=== PATIENT | female | born 1975 | race Caucasian/White ===

== ENCOUNTER 2022-05-08 16:26 | Emergency (ER) | payer BC, SELFPAY ==
--- NOTE | ~2022-05-08 | XR_ITS ---
EXAM: XR finger 3rd RT min 2V DATE: 05/08/2022 17:06 HISTORY: DOG LEASH GOT WRAPPED AROUND FINGER 05/05/22. PAIN. . COMPARISON: None available. FINDINGS: Normal mineralization. No fracture or dislocation. No lytic or blastic lesion. Joint space s are maintained. No erosion or periosteal change. Soft tissues within normal limits. IMPRESSION: No acute osseous finding in the right third finger. Reviewed, dictated and finalized at location K.
[2022-05-08 16:46] VITALS: BP 132/71; PULSE 72; RESP 20; TEMP 36.9; O2SAT 99
[2022-05-08 16:58] VITALS: BP 132/71; PULSE 72; RESP 20; TEMP 36.9; O2SAT 99
--- NOTE | 2022-05-08 17:00 | ED.UPPEXIN ---
HPI - Extremity Injury (Upper) General Chief Complaint: Extremity Injury, Upper Stated Complaint: Finger Injury/RIght Time Seen by Provider: 05/08/22 17:00 Source: patient Mode of arrival: ambulatory Limitations: no limitations History of Present Illness HPI narrative: 46 y/o female presented for c/o right middle finger pain after injury 3 days ago. She was walking her dog who started running while the leash was wrapped around the finger. Endorses swelling and pain since then. Denies numbness, tingling, or weakness to the finger. Related Data Home Medications Medication Instructions Recorded Confirmed escitalopram oxalate 20 mg tablet 20 mg PO DAILY 05/08/22 05/08/22 esomeprazole magnesium 40 mg 40 mg PO DAILY 05/08/22 05/08/22 capsule,delayed release hydrochlorothiazide 25 mg tablet 25 mg PO DAILY 05/08/22 05/08/22 pentoxifylline 400 mg 400 mg PO DAILY 05/08/22 05/08/22 tablet,extended release potassium chloride 20 mEq 20 meq PO DAILY 05/08/22 05/08/22 tablet,extended release(part/cryst) (Klor-Con M) Allergies Allergy/AdvReac Type Severity Reaction Status Date / Time Penicillins Allergy Unknown Verified 05/08/22 16:56 Review of Systems Review of Systems: CONSTITUTIONAL: Denies body aches, fever, chills CARDIOVASCULAR: Denies chest pain, palpitations, or edema. RESPIRATORY: Denies cough or dyspnea. SKIN: Denies rash, itching, or wounds. MUSCULOSKELETAL: Reports right middle finger pain NEUROLOGIC: Denies headache, numbness, tingling, or weakness. All systems reviewed & are unremarkable except as noted in HPI and below PMFSH Comments At time of signature, I have reviewed and agree with nursing past medical, surgical, social and family history unless otherwise noted. Please see nursing chart for further information. There is no relevant family history pertinent to the presenting complaint Exam Narrative: GENERAL: Well-appearing CHEST: LCTAB HEART: Regular rate and rhythm. Normal and equal peripheral pulses. EXTREMITIES: Right 3rd finger with mild swelling and decreased ROM, tender to PIP. No bruising. Hand has normal strength and sensation, No open wounds or obvious deformity; pulse palpable and equal bilaterally, skin warm, dry, pink. Capillary refill less than 3 seconds. SKIN: Warm, dry, no rash. NEURO: Alert and oriented x3. Course Course Emergency Course: Patient is aware of diagnosis, understands and agrees to treatment plan. Anticipatory guidance given. Patient agrees to follow-up as directed and is aware of reasons to seek care at the emergency department. Portions of this record may have been created with voice recognition software Level of Care: Express Care Visit Vital Signs Vital signs: Vital Signs Temperature 98.5 F 05/08/22 16:46 Pulse Rate 72 05/08/22 16:46 Respiratory Rate 20 05/08/22 16:46 Blood Pressure 132/71 05/08/22 16:46 Pulse Oximetry 99 05/08/22 16:46 Oxygen Delivery Room Air 05/08/22 16:46 Temperature 98.5 F 05/08/22 16:58 Pulse Rate 72 05/08/22 16:58 Respiratory Rate 20 05/08/22 16:58 Blood Pressure 132/71 05/08/22 16:58 Pulse Oximetry 99 05/08/22 16:58 Oxygen Delivery Room Air 05/08/22 16:58 Reviewed Procedures Orthopedic Splinting/Casting Right middle finger: Upper Extremity Immobilizer: aluminum form splint MDM - Extremity Injury (Upper) MDM Narrative Medical decision making narrative: Result of x-ray reviewed with patient. Splint applied to the right third finger. concern for tendon or nerve injury. Patient is treatable on an outpatient basis. Differential Diagnosis Differential diagnosis: Likely finger sprain and dislocation of finger Imaging Data Radiologist's impression: Patient: Rosangela Brooks : 1975 MR#: [id number] Age/Sex: 46 / F Acct:[id number] Loc: [facility]? ? ADM Date: 05/08/22Attending Dr: Ordering Physician: George, Zaida Morales DO Date of Service:
== END 2022-05-08 17:27 | disposition home or self-care (01) ==
PROVIDERS: Emergency Provider Nurse Practitioner Family; PCP Family Medicine
DX: S63.612A Unspecified sprain of right middle finger, initial encounter (principal); X58.XXXA Exposure to other specified factors, initial encounter
CPT/HCPCS: 29130; 73140; 99213; G0463